=== PATIENT | male | born 1940 | race Caucasian/White ===

== ENCOUNTER 2017-05-21 07:15 | Inpatient (IN) | payer OTHER ==
[~2017-05-21 07:15] MED LIST: DEXAMETHASONE 10 MG/ML VIAL IVP ONE; TRANEXAMIC ACID 1,000 MG in NS 100 ML IV ONE; ceFAZolin 2 GM/DEXTROSE 100 ML IV ONE
[2017-05-21] MEDS ORDERED: BUPIVACAINE 0.25% 30 ML SDV ONE (11:24)
[2017-05-21] MEDS ORDERED: THROMBIN (BOVINE) 5,000 UNIT VIAL TP ONE (11:24)
[2017-05-21] MEDS ORDERED: CHLORHEXIDINE GLUC HIBICLENS 118 ML BTL TP ONE (11:24)
[2017-05-21] MEDS ORDERED: BACITRACIN 50,000 UNITS/10 ML SYR IRR ONE (11:25)
[2017-05-21] MEDS ORDERED: POVIDONE-IODINE 30 GM OINTTUBE TP ONE (11:28)
[2017-05-21] MEDS ORDERED: BACITRACIN ZINC 14.2 GM OINTTUBE TP ONE (11:28)
[2017-05-21] MEDS ORDERED: LIDOCAINE 1% 2 ML INJ ID PRN (11:32)
[2017-05-21] MEDS ORDERED: LR 1,000 ML IV ONE (11:32)
[2017-05-21] MEDS ORDERED: ceFAZolin 2 GM/DEXTROSE 100 ML IV ONE (12:00)
[2017-05-21] MEDS ORDERED: DEXAMETHASONE 10 MG/ML VIAL IVP ONE (12:00)
[2017-05-21] MEDS ORDERED: fentaNYL 100 MCG/2 ML INJ ONE ×2 (12:07→17:02)
[2017-05-21] MEDS ORDERED: REMIFENTANIL HCL 1 MG VIAL ONE ×3 (12:07→12:08)
[2017-05-21] MEDS ORDERED: PROPOFOL 200 MG/20 ML VIAL ONE (12:08)
[2017-05-21] MEDS ORDERED: PROPOFOL/EMULSION 500 MG/50 ML BOTTLE IV ONE ×2 (12:08→15:47)
[2017-05-21] MEDS ORDERED: DEXAMETHASONE 4 MG/ML VIAL ONE (14:19)
[2017-05-21] MEDS ORDERED: ONDANSETRON 4 MG/2 ML VIAL ONE (14:19)
[2017-05-21] MEDS ORDERED: ROCURONIUM 50 MG/5 ML VIAL ONE (14:19)
[2017-05-21] MEDS ORDERED: SUGAMMADEX SODIUM 200 MG/2 ML VIAL IVP ONE (14:48)
--- NOTE | 2017-05-21 14:59 | PDANEPAE ---
ANE History of Present Illness Patient presents for anterior posterior neck fusion ANE Past Medical History - Cardiovascular History Hx Hypertension: Yes Hx Arrhythmias: No Hx Chest Pain: No Hx Coronary Artery / Peripheral Vascular Disease: No Hx CHF / Valvular Disease: No Hx Palpitations: No - Pulmonary History Hx COPD: No Hx Asthma/Reactive Airway Disease: No Hx Recent Upper Respiratory Infection: No Hx Oxygen in Use at Home: No Hx Sleep Apnea: No Sleep Apnea Screening Result - Last Documented: Positive - Neurologic History Hx Cerebrovascular Accident: No Hx Seizures: No Hx Dementia: No - Endocrine History Hx Diabetes: No - Renal History Hx Renal Disorders: No - Liver History Hx Hepatic Disorders: No - Neurological & Psychiatric Hx Hx Neurological and Psychiatric Disorders: No Neurological / Psychiatric History Comment: NUMBNESS TO BOTH ARMS - Cancer History Hx Cancer: No - Congenital Disorder History Hx Congenital Disorders: No - GI History Hx Gastrointestinal Disorders: No - Other Health History Other Health History: NONE - Chronic Pain History Chronic Pain: Yes (LEFT KNEE AND RIGHT HIP) - Surgical History Prior Surgeries: NONE, ANE Review of Systems Review of Systems: - Exercise capacity METS (RN): 4 METS ANE Patient History - Allergies Allergies/Adverse Reactions: Penicillins Allergy (Verified 05/14/17 11:13) propoxyphene [From Darvon] Allergy (Verified 05/14/17 14:07) - Home Medications Home medications: home medication list seen and reviewed Home Medications: Ascorbic Acid [Vitamin C 500 mg (*)] 500 mg PO DAILY 05/14/17 [Last Taken ] Cyanocobalamin [Vitamin B12 (*)] 1,000 mcg PO DAILY 05/14/17 [Last Taken ] Glucosamine/Chondroitin [Glucosamine/Chondroitin (*)] 2 each PO DAILY 05/14/17 [ Last Taken 05/14/17] Herbals/Supplements -Info Only 1 each PO DAILY 05/14/17 [Last Taken 05/14/17] Multivitamins [Multivitamin (*)] 1 each PO DAILY 05/14/17 [Last Taken 05/14/17] Naproxen Sodium [Aleve 220 MG (*)] 440 mg PO BID 05/14/17 [Last Taken 05/14/17] Simvastatin [Zocor] 80 mg PO DAILY 05/14/17 [Last Taken 05/20/17] amLODIPine/VALSARTAN [Amlodipine-Valsartan 10-160 mg] 1 each PO DAILY 05/14/17 [ Last Taken 05/20/17] - NPO status NPO Status: no food or drink >8 hours NPO Since - Liquids (Date): 05/20/17 NPO Since - Liquids (Time): 19:00 NPO Since - Solids (Date): 05/20/17 NPO Since - Solids (Time): 19:00 - Anes Hx Anes Hx: no prior problems - Smoking Hx Smoking Status: Never smoked - Family Anes Hx Family Hx Anesthesia Complications: NONE ANE Labs/Vital Signs - Vital Signs Blood Pressure: 128/78 Heart Rate: 60 Respiratory Rate: 16 O2 Sat (%): 95 Height: 173.99 cm Weight: 77.111 kg ANE Physical Exam - Airway Neck exam: FROM Mallampati Score: Class 1 Mouth exam: normal dental/mouth exam - Pulmonary Pulmonary: no respiratory distress - Cardiovascular Cardiovascular: regular rate and rhythym - ASA Status ASA Status: II ANE Anesthesia Plan Anesthesia Plan: general endotracheal anesthesia (rba discussed)
[2017-05-21] MEDS ORDERED: PHENYLEPHRINE HCL 100 MCG/ML SYR ONE (16:12)
[2017-05-21] MEDS ORDERED: ONDANSETRON 4 MG/2 ML VIAL IVP PRN ×2 (16:34→16:45)
[2017-05-21] MEDS ORDERED: LACTULOSE 20 GM/30 ML UDCUP PO PRN (16:34)
[2017-05-21] MEDS ORDERED: MAGNESIUM HYDROXIDE 30 ML UDCUP PO PRN (16:34)
[2017-05-21] MEDS ORDERED: ONDANSETRON DISINTEGRATING 4 MG TAB PO PRN (16:34)
[2017-05-21] MEDS ORDERED: BISACODYL 10 MG SUPP PR PRN (16:34)
[2017-05-21] MEDS ORDERED: diphenhydrAMINE 25 MG CAP PO PRN (16:34)
--- NOTE | 2017-05-21 16:44 | SOAPPROG ---
SOAP Progress Note Assessment/Plan: Assessment: 76 yo M sp C5-7 hardware removal, C4/5 ACDF Plan: stable hard collar for 6 weeks MALCOM x 1 x-rays in am lovenox on POD #3 please call with neuro changes 05/21/17 16:42 Subjective: + neck pain, no arm pain Objective: Vital Signs Temp Pulse Resp BP Pulse Ox 36.8 C 60 16 128/78 H 95 05/21/17 11:44 05/21/17 14:59 05/21/17 14:59 05/21/17 14:59 05/21/17 14:59 Awake, alert PERRL, no facial droop OJ x4 + light touch ICD10 Worksheet Patient Problems: Problems Problem Status Onset Fusion of spine of cervical region Acute - ICD10 Problem Qualifiers (1) Fusion of spine of cervical region
[2017-05-21] MEDS ORDERED: NALOXONE HCL 0.4 MG/ML INJ IVP PRN (16:45)
[2017-05-21] MEDS ORDERED: LR 500 ML IV PRN (16:45)
[2017-05-21] MEDS ORDERED: NS 1,000 ML IV SCH (16:45)
--- NOTE | 2017-05-21 16:57 | POSTANESTH ---
Post Anesthetic Evaluation Respiratory Status: Normal, Stable Level of Consciousness/Mental Status: Alert and Oriented Pain Control: Adequate, Prn Tx Ordered Nausea/Vomiting Control: Adequate, Prn Tx Ordered Complications Possibly Related to Anesthesia: None Noted
[2017-05-21] MEDS: fentaNYL 100 MCG/2 ML INJ IVP PRN ×2 (17:07→17:21)
--- NOTE | 2017-05-21 17:46 | GOP ---
[f rep st] OPERATIVE REPORT DATE OF OPERATION: 05/21/2017 SURGEON: Manjit Centeno MD PLATEMAKER: NATAN Covington ANESTHESIA: General endotracheal. 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 Progressive myelopathy. 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 C4-5 disk herniation with severe centra l canal stenosis and spinal cord compression. Progressive myelopathy. PROCEDURE PERFORMED: Removal of anterior cervical plate at C5 through C7 with exploration of spinal fusion. C4-5 complete anterior cervical diskectomy and arthrodesis with an 11 mm structural PEEK int erbody spacer with local autograft and placement of a 23 mm LnK CastleLoc-P anterior cervical plate w ith self-drilling screws. Use of intraoperative microscopy and fluoroscopy. FINDINGS: ESTIMATED BLOOD LOSS: 25 cc. INDICATIONS: The patient is a 76-year-old man with a history of multiple decompressions and fusions in his cervical spine, and an anterior cervical plate and screws from C5 through C7. He has adjacent level degeneration at the C4-5 level with severe disk degeneration and collapse and herniation, with central canal stenosis and spinal cord compression with myelopathic symptoms. He presents now for s urgical decompression and stabilization through both an anterior and possibly a posterior approach, d epending on the screw purchase and the results of the anterior surgery. DESCRIPTION OF PROCEDURE: After informed consent was obtained, the patient was taken to the operatin g room and placed in the supine position with the head in the Halter retractor system. The anterior cervical region was prepped and draped in a sterile fashion. After fluoroscopic localization of david ect levels, the subcutaneous and intramuscular tissues were infiltrated with local anesthesia. A hor izontal incision was then created at the level of the C4-5 interspace. This was carried through the platysmal layer using monopolar cautery and carried in the avascular plane between the sternocleidoma stoid and carotid sheath laterally, and the strap muscles, trachea, and esophagus medially down to th e pre-vertebral fascia. The C4-5, C5-6, and C6-7 levels were identified and re-verified using intraoperative fluoroscopy. Th e prior plate was identified and carefully dissected out and removed in standard fashion. The screw holes were filled with dry Gel-Foam. The C4-5 level was then re-verified and the very large osteophy te was carefully removed and harvested for local autograft. The [place] distraction pins were then in serted and placed under distraction, during which time a complete diskectomy was performed with prepa ration of the endplates and removal of the posterior longitudinal ligament. Bilateral foraminotomies were performed and the central canal and bilateral neural foramina were thoroughly decompressed. Ep idural venous bleeding was controlled with careful bipolar electrocautery under high-power microscopy , as well as Gel-Foam soaked in thrombin which was then removed. Following adequate decompression and hemostasis and copious irrigation, the remaining endplates were carefully prepared and an appropriately size 11 mm structural PEEK interbody spacer packed with local ly harvested autograft in the center, was placed in the interspace at the C4-5 level under fluoroscop ic image guidance. The distraction was removed and our appropriately sized 23 mm LnK CastleLoc-P ant erior cervical plate was then placed and secured with self-drilling screws. Following re-verificatio n of good position of the plate, screws and interbody spacers using biplanar fluoroscopy, the locking mechanisms were engaged. The patient's bone screw interface was very solid and based on the signifi cant distraction and the solid fixation with a large graft and quite a bit of bone graft, I felt that it was in the patient's best interest to not proceed with the posterior instrumentation and fusion. I feel that it is very likely the patient will heal. There is a possibility of pseudoarthrosis at t he C4-5 level but the posterior operation is a completely separate surgery and if he needs that in e future, we will address it at that time. Following verification of all the instrumentation in good position, the remaining bone graft was gent ly packed into the anterior hole of the plate and some in the uncovertebral joints. A drain was plac ed. The subcutaneous and intramuscular tissues were re-infiltrated with local anesthesia. The wound was closed in a layered fashion using interrupted Vicryl sutures followed by Steri-Strips on the ski n. COMPLICATIONS: None. DISPOSITION: The patient is currently in the process of being repositioned for extubation. /[id number]/MODL
[2017-05-21] MEDS: ACETAMINOPHEN 500 MG TAB PO SCH (21:19)
[2017-05-21] MEDS: SENNOSIDES/DOCUSATE SODIUM TAB PO SCH (21:20)
[2017-05-21] MEDS: FAMOTIDINE 20 MG TAB PO SCH (21:20)
[2017-05-21] MEDS: POLYETHYLENE GLYCOL 3350 17 GM PKT PO SCH (21:20)
[2017-05-21] MEDS: METHOCARBAMOL 750 MG TAB PO PRN (22:44)
[2017-05-21] MEDS: oxyCODONE IR 5 MG TAB PO PRN (22:44)
[2017-05-21] MEDS: ceFAZolin 2 GM/DEXTROSE 100 ML IV SCH (22:45)
[2017-05-22] MEDS: ACETAMINOPHEN 500 MG TAB PO SCH ×2 (06:11→13:06)
[2017-05-22] MEDS: ceFAZolin 2 GM/DEXTROSE 100 ML IV SCH (06:11)
[2017-05-22 07:38] VITALS: RESP 16; TEMP 98.2
--- NOTE | 2017-05-22 08:27 | SOAPPROG ---
OSVALDO Progress Note Assessment/Plan: Assessment: 76 yo male POD #1 s/p removal of anterior plate C5-7 followed by C4/5 ACDF Doing well this AM with notable improvement of his left biceps pain He is not compliant with cervical ROM and moves his head around quite a bit even with the hard collar on Plan: COntinue HARD collar at all times for 6 weeks Continue MALCOM this AM, we will likely DC this prior to his discharge today PT/OT/ST need to evaluate him today. Cervical xrays this AM. 05/22/17 08:24 05/22/17 08:25 Subjective: out of bed, walking around. Denies pain. He is swallowing yogurt. Reports improved left biceps pain. He is wearing his soft collar loosely. He states he loosened this himself. I eductated on how to wear it and retightened it. Objective: Vital Signs Temp Pulse Resp BP Pulse Ox 36.8 C 72 16 119/71 93 05/22/17 07:37 05/22/17 07:37 05/22/17 07:37 05/22/17 07:37 05/22/17 07:37 05/21/17 05/22/17 05/23/17 05:59 05:59 05:59 Intake Total 1300 Output Total 60 Balance 1240 Neuro: MENESES, sens+LT ambulatory MALCOM: 30ml Dressing: CDI minimal anterior neck edema ICD10 Worksheet Patient Problems: Problems Problem Status Onset Fusion of spine of cervical region Acute
[2017-05-22] MEDS ORDERED: ATORVASTATIN CALCIUM 40 MG TAB PO SCH (09:00)
[2017-05-22] MEDS ORDERED: VALSARTAN 160 MG TAB PO SCH (09:00)
[2017-05-22] MEDS: FAMOTIDINE 20 MG TAB PO SCH (09:10)
[2017-05-22] MEDS: POLYETHYLENE GLYCOL 3350 17 GM PKT PO SCH (09:19)
[2017-05-22] MEDS: SENNOSIDES/DOCUSATE SODIUM TAB PO SCH (09:20)
[2017-05-22 11:17] VITALS: BP 139/75; PULSE 82; O2SAT 94
[2017-05-22] MEDS: oxyCODONE IR 5 MG TAB PO PRN (13:06)
[2017-05-22] MEDS: METHOCARBAMOL 750 MG TAB PO PRN (13:06)
--- NOTE | 2017-05-22 16:18 | ASDISCHSUM ---
Discharge Information Plan Status:Home with No Needs Medically Cleared to Leave: Discharge Date:05/22/2017 04:06 PM D/C Disposition:Home, Routine, Self-Care ADT D/C Disposition:Home, Routine, Self-Care Projected Discharge Date:05/22/2017 04:06 PM Transportation at D/C: Discharge Delay Reason: Follow-Up Date:05/22/2017 04:06 PM Discharge Slot: Final Diagnosis: Placement Information Patient Contact Information Contact Name:JEFFREY Relationship:Wesley Address: Work Phone: City: [facility] Phone: State/Zip Code: Email: Financial Information Financial Class: Primary Plan Desc:MEDICARE INPATIENT Primary Plan Number:[id number] Secondary Plan Desc:[facility] Secondary Plan Number:[id number] Assessment Information Intervention Information
[2017-05-24] MEDS ORDERED: ENOXAPARIN 40 MG/0.4 ML SYR SC SCH (09:00)
== END 2017-05-22 16:06 | disposition home or self-care (01) | DRG 472 ==
LOC: F3N 10:49
PROVIDERS: ADMIT Neurological Surgery; ATTEND Neurological Surgery
DX: M48.02 Spinal stenosis, cervical region (principal); M50.021 Cervical disc disorder at C4-C5 level with myelopathy; Z98.1 Arthrodesis status
CPT/HCPCS: 92610-GN; 97161-GP; 97165-GO; C1713; G8978-GP-CI; G8979-GP-CI; G8980-GP-CI; G8987-GO-CI; G8988-GO-CH; G8989-GO-CH; G8996-GN-CI; G8997-GN-CH; J0171; J0690; J1100; J2370; J2405; J2704; J3010